=== PATIENT | female | born 2000 | race Caucasian/White ===

== ENCOUNTER 2023-03-31 13:55 | Emergency (ER) | payer OTHER ==
[~2023-03-31] VITALS: Ht 167.6 cm; Wt 85.1 kg
[2023-03-31] MEDS ORDERED: TRAZ1TAB14 PO (14:08)
[2023-03-31] MEDS ORDERED: ZOLO100T PO (14:08)
[2023-03-31] MEDS ORDERED: HYDR50CA2 PO (14:09)
[2023-03-31] MEDS ORDERED: HYDR50TA70 PO (14:09)
[2023-03-31] MEDS ORDERED: PROP60TA14 PO (14:10)
[2023-03-31] MEDS ORDERED: PROP20TA72 PO (14:10)
[2023-03-31] MEDS ORDERED: NS 1,000 ML IV ONE (17:40)
[2023-03-31 18:26] LABS: BASO % 0.3 % (0.0-1.0); EOS # 0.1 10^3/uL (0.0-0.5); EOS % 0.8 % (0.0-3.0); HEMATOCRIT 40.6 % (36.0-47.0); HEMOGLOBIN 13.8 g/dl (12.0-15.5); LYMPH # 1.5 10^3/uL (1.5-5.0); LYMPH % 23.5 % (24.0-44.0); MEAN CORPUSCULAR HEMOGLOBIN 28.3 pg (27.0-33.0); MEAN CORPUSCULAR VOLUME 83.2 fl (80.0-96.0); MONO # 0.4 10^3/uL (0.0-0.8); MONO % 5.4 % (2.0-8.0); NEUTROPHILS # 4.5 10^3/uL (1.5-8.5); NEUTROPHILS % 69.8 % (36.0-66.0); PLATELET COUNT, AUTOMATED 191 10^3/uL (150-450); RED BLOOD COUNT 4.88 10^6/uL (4.00-5.40); WHITE BLOOD COUNT 6.5 10^3/uL (4.0-10.0)
[2023-03-31 18:38] LABS: INR 1.12; PROTHROMBIN TIME 14.1 SECONDS (12.5-14.5)
[2023-03-31 18:39] LABS: PARTIAL THROMBOPLASTIN TIME 31.2 SECONDS (24.8-34.2)
[2023-03-31 19:38] LABS: RSV AMPLIFICATION NEGATIVE (NEGATIVE)
[2023-03-31 20:25] VITALS: BP 121/74; TEMP 98.2; O2SAT 99
[2023-03-31 21:14] LABS: CHLAMYDIA DNA AMPLIFICATION NEGATIVE (NEGATIVE); GC DNA AMPLIFICATION NEGATIVE (NEGATIVE)
== END 2023-03-31 20:41 | disposition home or self-care (01) ==
LOC: M ED 13:55
DX: Z32.01 Encounter for pregnancy test, result positive (principal)

== ENCOUNTER 2023-04-03 11:14 | Emergency (ER) | payer OTHER ==
[~2023-04-03] VITALS: Ht 167.6 cm; Wt 85.3 kg
[2023-04-03 11:16] VITALS: BP 117/63; TEMP 96.3; O2SAT 97
== END 2023-04-03 13:47 | disposition left against medical advice (07) ==
LOC: M ED 11:14
DX: Z53.21 Procedure and treatment not carried out due to patient leaving prior to being seen by health care provider (principal)

== ENCOUNTER → 2023-04-03 | Outpatient (CLI) | payer OTHER ==
[~2023-04-03] MED LIST: HYDR50CA2 PO; HYDR50TA70 PO; PROP20TA72 PO; PROP60TA14 PO; TRAZ1TAB14 PO; ZOLO100T PO
[2023-04-03 17:26] LABS: HCG, SERUM QUALITATIVE POSITIVE (NEGATIVE)
== END ==
LOC: M RAD 15:58
PROVIDERS: ATTEND Advanced Practice Midwife
DX: Z33.1 Pregnant state, incidental (principal)

== ENCOUNTER 2023-10-15 15:14 | Emergency (ER) | payer OTHER ==
[~2023-10-15] VITALS: Ht 167.6 cm; Wt 81.3 kg
[2023-10-15] MEDS ORDERED: UNIS25TA3 PO (15:25)
[2023-10-15 18:03] LABS: BASO % 0.1 % (0.0-1.0); EOS % 0.2 % (0.0-3.0); HEMATOCRIT 33.5 % (36.0-47.0); HEMOGLOBIN 11.1 g/dl (12.0-15.5); LYMPH # 1.4 10^3/uL (1.5-5.0); LYMPH % 17.5 % (24.0-44.0); MEAN CORPUSCULAR HEMOGLOBIN 26.7 pg (27.0-33.0); MEAN CORPUSCULAR HGB CONC 33.1 g/dl (32.0-36.5); MEAN CORPUSCULAR VOLUME 80.7 fl (80.0-96.0); MONO # 0.4 10^3/uL (0.0-0.8); MONO % 4.7 % (2.0-8.0); NEUTROPHILS # 6.2 10^3/uL (1.5-8.5); PLATELET COUNT, AUTOMATED 165 10^3/uL (150-450); RED BLOOD COUNT 4.15 10^6/uL (4.00-5.40); WHITE BLOOD COUNT 8.1 10^3/uL (4.0-10.0)
[2023-10-15] MEDS: METOCLOPRAMIDE INJ 10MG/2ML VIAL IV ONE (18:37)
[2023-10-15] MEDS: NS 1,000 ML IV ONE (18:37)
[2023-10-15 18:49] LABS: BLOOD UREA NITROGEN < 5 MG/DL (9-23); CARBON DIOXIDE LEVEL 22 MMOL/L (20-31); CHLORIDE LEVEL 107 MMOL/L (98-107); CREATININE FOR GFR 0.54 MG/DL (0.55-1.30); GLOMERULAR FILTRATION RATE > 60.0 (>60); GLUCOSE, FASTING 64 MG/DL (60-100); HCG, SERUM QUANTITATIVE 34240.2 MIU/ML (<4.2); POTASSIUM SERUM 4.4 MMOL/L (3.5-5.1); SODIUM LEVEL 138 MMOL/L (136-145)
[2023-10-15 19:08] VITALS: BP 108/49; TEMP 97.9; O2SAT 95
[2023-10-15] MEDS ORDERED: CEPH500C PO (19:55)
[2023-10-15] MEDS ORDERED: REGL10TA6 PO (19:55)
[2023-10-15] MEDS: CEPHALEXIN 500 MG CAP PO ONE (20:00)
== END 2023-10-15 20:04 | disposition home or self-care (01) ==
LOC: M ED 15:14
DX: O21.1 Hyperemesis gravidarum with metabolic disturbance (principal); O23.40 Unspecified infection of urinary tract in pregnancy, unspecified trimester; O99.340 Other mental disorders complicating pregnancy, unspecified trimester; Z79.2 Long term (current) use of antibiotics; Z79.899 Other long term (current) drug therapy
CPT/HCPCS: 80048; 81001; 84702; 85025; 86850; 86900; 86901; 87086; 87486; 87581; 87633; 87798; 96361; 96374; 99284; J2765

== ENCOUNTER → 2023-11-17 | Outpatient (REF) | payer OTHER ==
[~2023-11-17] MED LIST changes: +CEPH500C PO; +PRENTAB9 PO; +REGL10TA6 PO; +UNIS25TA3 PO
== END ==
LOC: M SFHCWAGY 17:02
PROVIDERS: ATTEND Obstetrics & Gynecology
DX: Z34.83 Encounter for supervision of other normal pregnancy, third trimester (principal)

== ENCOUNTER 2023-11-21 06:44 | Outpatient (CLI) | payer OTHER ==
[~2023-11-21] VITALS: Ht 167.6 cm; Wt 83.7 kg
[2023-11-21 06:51] VITALS: BP 116/70; O2SAT 98
== END 2023-11-21 08:08 | disposition home or self-care (01) ==
LOC: M LDO 06:44
PROVIDERS: ATTEND Advanced Practice Midwife
DX: O47.1 False labor at or after 37 completed weeks of gestation (principal); O26.23 Pregnancy care for patient with recurrent pregnancy loss, third trimester; O26.30 Retained intrauterine contraceptive device in pregnancy, unspecified trimester; Z3A.38 38 weeks gestation of pregnancy
CPT/HCPCS: 59025; G0463

== ENCOUNTER 2023-11-25 09:13 | Inpatient (IN) | payer OTHER ==
[~2023-11-25] VITALS: Ht 167.6 cm; Wt 81.8 kg
[2023-11-25] VITALS (39 sets, daily range): BP systolic 95–133; BP diastolic 51–84; O2SAT 95
[2023-11-25] MEDS ORDERED: ACET-683 PO (09:23)
[2023-11-25] MEDS ORDERED: HOME MED LIST COMPLETE! XX SCH (09:25)
[2023-11-25] MEDS ORDERED: LIDOCAINE 1% MDV 20ML VIAL INFIL PRN (09:45)
[2023-11-25] MEDS ORDERED: OXYTOCIN DRIP 30 UNITS in IV 1 EA IV PRN (09:45)
[2023-11-25 10:12] LABS: HEMATOCRIT 31.4 % (36.0-47.0); HEMOGLOBIN 10.4 g/dl (12.0-15.5); MEAN CORPUSCULAR HGB CONC 33.1 g/dl (32.0-36.5); MEAN CORPUSCULAR VOLUME 75.5 fl (80.0-96.0); PLATELET COUNT, AUTOMATED 193 10^3/uL (150-450); RED BLOOD COUNT 4.16 10^6/uL (4.00-5.40); WHITE BLOOD COUNT 4.8 10^3/uL (4.0-10.0)
[2023-11-25] MEDS: PENICILLIN G POTASSIUM 5 MU IV 5 MU in D5W MINI-BAG PLUS 100 ML IV STA (10:17)
[2023-11-25] MEDS: LR 1,000 ML IV SCH (10:17)
[2023-11-25] MEDS: BENZONATATE 100MG CAPSULE PO PRN (11:17)
[2023-11-25 11:19] LABS: HEPATITIS C VIRUS ABY INDEX < 0.02 INDEX (<0.8)
[2023-11-25] MEDS: OXYTOCIN DRIP 30 UNITS in IV 1 EA IV SCH (12:24)
[2023-11-25] MEDS ORDERED: LR 500 ML IV PRN (13:15)
[2023-11-25] MEDS ORDERED: EPIDURAL/PCA KEYS XX PRN (13:15)
[2023-11-25] MEDS ORDERED: ePHEDrine SULFATE 25 MG/5 ML(5MG/ML) SYRINGE IVP PRN (13:15)
[2023-11-25] MEDS ORDERED: diphenhydrAMINE 50MG/ML VIAL IV PRN (13:15)
[2023-11-25] MEDS ORDERED: NALOXONE INJ 0.4MG/1ML VIAL IV PRN (13:15)
[2023-11-25] MEDS ORDERED: ONDANSETRON 4MG 2ML VIAL IV PRN (13:15)
[2023-11-25] MEDS: FENTANYL/ROPIVACAINE/NACL BAG 100 ML EPIDURAL SCH (14:03)
[2023-11-25] MEDS: PEN G POT 3,000,000 UNIT/50 ML 3,000,000 UNIT in IV 1 EA IV SCH (14:22)
[2023-11-25] MEDS ORDERED: DIBUCAINE 1% OINTMENT 30GM TOP PRN (20:05)
[2023-11-25] MEDS ORDERED: RHO(D) IMMUNE GLOBULIN/MALTOSE 500MCG(2500IU)/2.2ML VIAL (WINRHO) IM SCH (20:05)
[2023-11-25] MEDS ORDERED: METHYLERGONOVINE MALEATE 0.2 MG TAB PO PRN (20:05)
[2023-11-25] MEDS ORDERED: IBUPROFEN 600MG TAB PO PRN (20:05)
[2023-11-25] MEDS ORDERED: ACETAMINOPHEN TAB 650MG DOSE (2X325MG) PO PRN (20:05)
[2023-11-25] MEDS: IBUPROFEN 800 MG TAB PO PRN (20:44)
[2023-11-25] MEDS: ACETAMINOPHEN 500 MG TAB PO PRN (23:24)
[2023-11-26 05:46] VITALS: BP 98/58; O2SAT 98
[2023-11-26] MEDS: PRENATAL VITAMINS CHEWABLE TABLET PO SCH (09:04)
[2023-11-26] MEDS: PERCOCET 5MG/325MG TAB PO PRN (12:56)
[2023-11-26 18:00] VITALS: BP 114/60; O2SAT 97
[2023-11-27 06:00] VITALS: BP 121/58; O2SAT 96
[2023-11-27 08:05] VITALS: BP 121/58; TEMP 97.5; O2SAT 96
[2023-11-27] MEDS ORDERED: IBUP80TA PO (08:26)
[2023-11-27] MEDS ORDERED: ACET-683 PO (08:26)
[2023-11-27] MEDS: MEASLES,MUMPS,RUBELLA VACCINE INJ (MMR-II) SC.IMMUN ONE (09:00)
[2023-11-27] MEDS ORDERED: SERT50TA29 PO (11:05)
[2023-11-27] MEDS: SERTRALINE HCL 50 MG TAB PO ONE (11:49)
[2023-11-27 18:00] VITALS: BP 112/63; O2SAT 97
[2023-11-28 06:38] VITALS: BP 97/52; O2SAT 97
[2023-11-28] MEDS: DOCUSATE SODIUM 100MG CAPSULE PO PRN (08:09)
[2023-11-28] MEDS: SERTRALINE HCL 50 MG TAB PO SCH (08:10)
== END 2023-11-28 13:36 | disposition home or self-care (01) | DRG 807 ==
LOC: M LDO 09:13 → M LDI 09:31 → M OBS 21:25
PROVIDERS: ADMIT Specialist; ATTEND Specialist
PROC: 10E0XZZ Delivery of Products of Conception, External Approach (ICD-10-PCS; principal; 2023-11-25)
PROC: 10907ZC Drainage of Amniotic Fluid, Therapeutic from Products of Conception, Via Natural or Artificial Opening (ICD-10-PCS; 2023-11-25)
DX: O99.824 Streptococcus B carrier state complicating childbirth (principal); Z37.0 Single live birth; Z3A.38 38 weeks gestation of pregnancy; O69.81X0 Labor and delivery complicated by cord around neck, without compression, not applicable or unspecified